=== PATIENT | male | born 1990 | race Caucasian/White ===

== ENCOUNTER 2016-12-24 15:31 | Emergency (ER) | payer OTHER ==
[~2016-12-24] VITALS: Ht 170.2 cm; Wt 63.5 kg
[~2016-12-24 15:31] MED LIST: BACTRIM DS 8001 TAB PO; BENADRYL 25MG C25 MG PO; CLARITIN 10MG T10 MG PO; DARVOCET-N 1001 EACH PO; DIPROLENE AF0.05% TP; FLEXERIL10 MG PO; HYDROCODONE1 TABLET PO; KEFLEX 500MG.500 MG PO
--- NOTE | 2016-12-24 15:47 | Emergency Room Report ---
History of Present Illness Time Seen by [email or web address] Presenting Problem in Triage Pt arrived:Walked Presenting Problem:PT C/O ABD PAIN AND LOWER BACK PAIN THAT BEGAN TODAY. PT DENIES N/V/D Onset of symptoms date/time:/ or onset unknown for:MEDICAL HX UNKNOWN Treatment Prior to Arrival: H[employer]ER Provided by: Sepsis Risk Assessment: Temp: 98.4 B/P: 118/68 MAP: 84 Pulse: 69 Resp: 18 Recent fever? N Clinical Suspician of Infection? N Mental Status: 1 - Regular (Normal Baseline) Sepsis Risk:Low Sepsis Risk Have you (or family members/close friends) recently traveled outside the [place]? N If Yes, where/when: Have you had exposure to infectious disease within the past month? N TB? Other? Specify: Gradual onset of epigastric pain today, a little diffuse back pain, but no urinary sx. Reports progressive weight loss over the last few years, with intermittent cramping. He denies blood from above or below. He has a cousin with [facility] Crohn's disease. ALLERGIES Coded Allergies: No Known Allergies (12/24/16) Home Medications Reported Medications No Known Home Medications History Medical History General CAD? No Angina: No ME: No Hypertension? No Hyperlipidemia? No CHF? No DVT? No PE? No COPD? No Asthma? Yes Anemia? No GERD? No Gastric ulcers? No GI Bleed? No Hernia? No Thyroid Problems? No Hypothyroidism? No CVA? No Seizures? Yes Diabetes? No Insulin Dependent: No Insulin Pump: No Home FSBS? No Renal Insuffiency? No End Stage Renal Disease? No UTI? No Stones? No BPH? No GB Disease: No Nephritic Syndrome? No Asplenia? No Hepatitis? No Sickle Cell Disease? No Arthritis? No Migraines? No Cataracts? No Glaucoma? No MRSA? No HIV? No TB? No Anxiety? Yes Depression? No Cancer? No More? No Immunization Hx DT/Tetanus 01/20/10 Surgical Hx Previous Surgery?Y BRUCE EYE SURGERY WISDOM TEETH EXTRACTION Social History Smoking Hx Smoker: Current Every Day Smoker Tobacco: Yes Type Cigarettes Packs/day < 1 Pack Alcohol Alcohol: Yes Review of Systems All Other Systems Reviewed and Negative Gastrointestinal see HPI Physical Exam Vital Signs Vital Signs Date Time Temp Pulse Resp B/P Pulse O2 O2 Flow FiO2 Ox Delivery Rate 12/24 1606 24 12/24 1539 98.4 69 18 118/68 97 12/24 1536 98.4 69 18 97 General Appearance normal appearance, WD/WN, no apparent distress, thin (anxious during IV initiation) Eye Exam - bilateral eye normal exam, bilateral eye PERRL, bilateral eye EOMI Neck normal inspection, non-tender, supple, full range of motion Respiratory Status Yes: trachea midline, chest symmetrical, non tender chest. No: respiratory distress, tender on palpation, use of accessory muscles, pain on inspiration, pain on expiration, productive cough, non productive cough. Lung Sounds bilateral: normal breath sounds, lungs clear. Cardiovascular normal exam, regular rate/rhythm, no peripheral edema, no JVD, no murmur, no rub Gastrointestinal normal bowel sounds, normal exam, non tender, soft, no organomegaly, no guarding, no rebound Back no CVA tenderness Extremities normal range of motion Neurologic alert, normal exam, no motor/sensory deficits, oriented x 3 Glascow Coma Scale Glascow Coma Scale Response Value EYE response: 4 Spontaneously 4 MOTOR response: 6 OBEYS 6 VERBAL response: 5 Oriented & Converses 5 Total 15 Mental status normal mood/affect (anxious while IV initiated) Skin intact, warm/dry, diaphoresis, pallor Medical Decision Making LABS/Meds/Orders Pt receiving controlled substance in ED? No Raad was queried for this patient? No Results/Orders Laboratory Tests 12/24/16 1555: Sodium 140, Potassium 4.1, Chloride 103, Carbon Dioxide 32, BUN 11, Creatinine 0.9, Estimated Creat Clear 113, Estimated GFR (MDRD) 103, Glucose 105, Calcium 9.0, Total Bilirubin 0.6, AST 21, ALT 22, Alkaline Phosphatase 73, Total Protein 8.0, Albumin 4.3, Globulin 3.7 H, Albumin/Globulin Ratio 1.2, Amylase 50, Lipase 203, WBC 8.0, RBC 5.13, Hgb 16.3, Hct 47.8, MCV 93.1, RDW 13.1, Plt Count 247, Gran % 74.8, Gran # 6.0, Lymphocytes % 20.6, Monocytes % 4.6, Lymphocytes # 1.6, Monocytes # 0.4, PUBS MCHC 34.1, MCH 31.8 H 12/24/16 1545: Urine Color YELLOW, Urine Appearance SL CLOUDY, Urine pH 7.0, Ur Specific [place] 1.010, Urine Protein NEGATIVE, Urine Ketones NEGATIVE, Urine Blood NEGATIVE, Urine Nitrate NEGATIVE, Urine Bilirubin NEGATIVE, Urine Urobilinogen 0.2, Ur Leukocyte Esterase NEGATIVE, Urine RBC OCC, Urine WBC NONE, Ur Squamous Epith Cells OCC, Amorphous Sediment 1+, Urine Bacteria TRACE, Urine Glucose NEGATIVE Current Medication Orders Sig/Shannon Start time Last Medication Dose Route Stop Time Status Admin Pantoprazole Sodium 0 .STK-MED ONE 12/24 1644 DC IV Pantoprazole Sodium 40 MG ONCE ONE 12/24 1630 DC 12/24 IV 12/24 1631 1645 Sodium Chloride 10 ML ONCE ONE 12/24 1630 DC IV 12/24 1631 Lactated Ringer's 1,000 ML .Q4H 12/24 1615 AC 12/24 IV 12/24 2014 1606 Sodium Chloride 10 ML PRN PRN 12/24 1615 AC IV 12/25 1606 Lactated Ringer's 1,000 ML .STK-MED ONE 12/24 1603 DC IV Lorazepam 0 .STK-MED ONE 12/24 1601 DC .ROUTE Lorazepam 0.5 MG ONCE ONE 12/24 1600 DC 12/24 IV 12/24 1601 1606 Sodium Chloride 10 ML PRN PRN 12/24 1545 AC IV 12/25 1543 Orders Procedure Date/time Status DIET-NOTHING BY MOUTH 12/[address] ABD/PELVIS REQ 12/24 1544 Complete IV SALINE LOCK 12/24 1544 Active URINALYSIS/COMPLETE 12/24 1544 Complete LIPASE 12/24 1544 Complete CBC WITH AUTO DIFF 12/24 1544 Complete CHEM 12 PROFILE 12/24 1544 Complete AMYLASE 12/24 1544 Complete Progress ED Progress Notes 1 Date 12/24/16 Time 1729 Comment Patient had an anxiety attack while IV initiated. He became pale and diaphoretic ; Ativan given. ED Progress Notes 2 Date 12/24/16 Time 1729 Comment Patient feeling better; nonsurgical abdomen; normal labs and CT dc home stable Departure Departure Time of Disposition 1729 Disposition DC Home or Self Care(routine) Clinical Impression Primary Impression: Epigastric pain Condition STABLE Referrals Karson Ruvalcaba MD (Family) Patient Instructions DI for Epigastric Pain Additional Instructions Recommend Pepcid or Zantac over the counter, follow up with Dr. Ruvalcaba in one to two days regarding this pain as well as recent weight change. Discharge Counseling Counseled pt/family regarding diagnosis, test results, medications/RX, home care, follow up needs Prescriptions Current Visit Scripts No Known Home Medications ED Critical Care Critical Care No at 1730
[2016-12-24 16:00] LABS: URINE BILIRUBIN - DIPSTICK NEGATIVE (NEG); URINE BLOOD NEGATIVE (NEG)
[2016-12-24 16:08] LABS: URINE SQUAMOUS CELLS OCC #/hpf (OCC)
[2016-12-24 16:15] LABS: HEMOGLOBIN 16.3 g/dL (14.1-18.0)
[2016-12-24 16:16] LABS: LYMPH # 1.6 K/mm3 (0.7-4.5); LYMPH % 20.6 % (10-50)
--- NOTE | 2016-12-24 17:21 | RADIOLOGY REPORT PS360 ---
q CT ABD PELVIS W/O CONTRAST HISTORY: ABD PAIN, LOW BACK PAIN Patient Age: 26 years: Male Ordering Physician: Mckenna Hayden MD TECHNIQUE: Helical CT is performed through the abdomen and pelvis with no oral nor IV contrast. Sagittal and coronal reconstructions on CT workstation COMPARISON :Previous CT abdomen and pelvis from 01/03/2015 & 09/25/2013. Right upper quadrant ultrasound December 2014 FINDINGS Lung bases appear stable and clear with no active disease. Heart normal size. Abdomen/Pelvis. Lack of oral and IV contrast decreases sensitivity. ------GI tract:: Stomach,... Distended fluid and food filled filled stomach noted. But cannot exclude a mild ileus or developing gastroenteritis with overall appearance. However with this the gallbladder remains mildly distended as well. Would anticipate with full stomach there is a contraction of the gallbladder. The patient has had a generous size gallbladder on previous 2014 CT and ultrasound studies. Identified no additional features today. No calcified stones. No appreciable wall thickening or inflammation on this noncontrast study. Small bowel no significant dilatation. Moderate fluid throughout the small bowel with areas of upper normal wall thickening. No small bowel dilatation Large bowel. Moderate/generous stool throughout right, transverse & descending colon.. Generous gas throughout mildly distended rectosigmoid colon. With only scant stool stool at rectum... No bowel wall thickening. No air-fluid levels. Initially question of the could be some minimal free fluid to the right of the rectum but similar appearance is been seen on previous studies and unchanged today thus favor this is merely fluid-filled bowel loop at the lower right pelvis. Area similar to this prior 2013 and 2014 studies. The appendix is identified and normal. Terminal ileum unremarkable.. Small scattered nodes throughout the mesentery with no significant appearing mesenteric adenitis, no significant mesenteric adenopathy. -------- Internal Organs: Liver is unremarkable. No focal lesions. No biliary ductal dilatation. Pancreas appears satisfactory on this limited nonenhanced study. However may want toConsider amylase lipase to better exclude pancreatitis. spleen appears normal size Adrenals unremarkable. Kidneys unremarkable. No calculi nor obstruction. Ureters unremarkable. Pelvis. No additional findings. No adenopathy. No hernias. Patient very thin which makes CT more difficult. The lumbar spine appears stable and intact. Osseous pelvis and hips intact. The mild irregularity at the left L1 transverse process is a old feature. Likely congenital. Muscles are well-developed back and paraspinal region as well as abdominal wal ... If severe abdominal pain should develop or progress progress consider follow-up study with oral and IV contrast IMPRESSION: 1. Thin patient with no prominent acute abdominal/pelvic findings 2. In regards to back pain: kidneys unremarkable by CT. No discrete findings at spine nor paraspinal region. Pancreas unremarkable on this nonenhanced CT,. 2.. Note distended stomach. Generous Fluid & food yield moderately distended stomach. Also Small bowel with upper normal fluid and areas of upper normal wall thickness. No small bowel dilatation.. These are nonspecific features but could conceivably reflect a developing gastritis if clinical picture supports such.. 3. Also note that despite the distended food/fluid filled stomach- the gallbladder is not contracted as would be expected. Again nonspecific observation course correlation . 4. Moderate stool throughout the colon. Stool most generous at the right colon.
[2016-12-24 17:39] VITALS: BP 123/46
--- OUTSIDE RECORDS SUMMARY | 2016-12-26 21:44 | External Medical Summary Rpt ---
Author Author , SANJEEV HUTTON Address Unknown Phone [email or web address] Purpose Continuity of Care Document - through 2016 Problems Code Diagnosis DOS Provider Status R10.13 EPIGASTRIC PAIN R10.9 UNSPECIFIED ABDOMINAL PAIN
--- OUTSIDE RECORDS SUMMARY | 2016-12-26 21:44 | External Medical Summary Rpt ---
Author Author SANJEEV Address Unknown Phone [email or web address] Purpose Continuity of Care Document - through 2016
--- OUTSIDE RECORDS SUMMARY | 2016-12-26 21:44 | External Medical Summary Rpt ---
Demographics Preferred Language Portuguese Marital Status Unknown Druze Affiliation Unknown Race Unknown Ethnic Group Unknown Author Author ANNI Address Unknown Phone Immunization Unable to retrieve immunization data due to connection failure with Immunization Registry. Please try again later.
--- OUTSIDE RECORDS SUMMARY | 2016-12-26 21:44 | External Medical Summary Rpt ---
Author Author SANJEEV Address Unknown Phone [email or web address] Purpose Continuity of Care Document - through 2016
--- OUTSIDE RECORDS SUMMARY | 2016-12-26 21:44 | External Medical Summary Rpt ---
Demographics Preferred Language Frisian Marital Status Unknown Congregation Affiliation Unknown Race Unknown Ethnic Group Unknown Author Author ANNI Address Unknown Phone Immunization Unable to retrieve immunization data due to connection failure with Immunization Registry. Please try again later.
--- OUTSIDE RECORDS SUMMARY | 2016-12-26 21:44 | External Medical Summary Rpt ---
Author Author , SANJEEV HUTTON Address Unknown Phone [email or web address] Purpose Continuity of Care Document - through 2016 Problems Code Diagnosis DOS Provider Status R10.13 EPIGASTRIC PAIN R10.9 UNSPECIFIED ABDOMINAL PAIN
== END 2016-12-24 17:40 | disposition home or self-care (01) ==
LOC: ER 15:31
PROVIDERS: Emergency Medicine
DX: R10.13 Epigastric pain (principal); F41.9 Anxiety disorder, unspecified; Z72.0 Tobacco use